=== PATIENT | female | born 1975 | race Caucasian/White ===

== ENCOUNTER 2023-03-01 09:14 | Outpatient (RCR) | payer OTHER, SELFPAY | END 2023-03-14 11:05 | disposition home or self-care (01) | LOC: RPT 09:14 | PROVIDERS: ATTENDING PHYSICIAN Orthopaedic Surgery; FAMILY PHYSICIAN Nurse Practitioner Family | DX: R26.89 Other abnormalities of gait and mobility (principal); Z73.6 Limitation of activities due to disability; Z89.512 Acquired absence of left leg below knee | CPT/HCPCS: 97162; 97535 ==

== ENCOUNTER 2023-03-23 11:06 | Outpatient (RCR) | payer OTHER, SELFPAY | END 2023-04-06 07:35 | disposition home or self-care (01) | LOC: RPT 11:06 | PROVIDERS: ATTENDING PHYSICIAN Orthopaedic Surgery; FAMILY PHYSICIAN Nurse Practitioner Family | DX: Z47.81 Encounter for orthopedic aftercare following surgical amputation (principal); Z73.6 Limitation of activities due to disability; R26.89 Other abnormalities of gait and mobility; Z89.512 Acquired absence of left leg below knee | CPT/HCPCS: 97110; 97112; 97530; 97535 ==